=== PATIENT | female | born 1945 | race African-American/Black ===

== ENCOUNTER 2016-06-12 14:34 | Emergency (ER) | payer MEDICARE, OTHER ==
--- NOTE | ~2016-06-12 | CT71 ---
[facility] A Service of [facility] & [facility] RADIOLOGY TEXT RESULTS PATIENT: TAL DICK LOCATION: [facility] : 49 UNIT #: [id number] AGE: [address]: Melodie Santillan MD SEX: F ORDER DR: [id number] [facility] [address] [place], [place] [address] [id number] E MR#: [id number] Acc #: [id number] NAME: TAL DICK. : 1945 SEX: F STUDY DATE/TIME: 06/12/2016 15:39 UNIT: [facility] ROOM: STUDY DESCRIPTION: CT Head Wo Contrast Attending Physician: Melodie Santillan M.D. Ordering Physician: Melodie Santillan M.D. Primary Care Physician: Wanda Moyer M.D. MEDICAL IMAGING REPORT This report is preliminary unless electronic signature is present EXAM CT brain without contrast HISTORY Dizzy, lightheaded and visual disturbance for [address] exam was performed with one or more of the following radiation dose reduction techniques: automatic exposure control, adjustment of mA and/or kV according to patient size, and iterative reconstruction. FINDINGS Axial noncontrast images were obtained from the skull base to the vertex. Ventricular size and configuration are normal. There is no evidence of acute infarct or hemorrhage. There are no extra-axial fluid collections. No mass lesion or mass effect is seen. There are no skull fractures. IMPRESSION Normal noncontrast head CT. Dictated by... Silverio Cullen M.D. THIS IS AN ELECTRONICALLY VERIFIED REPORT Silverio Cullen M.D. at 06/13/2016 1:54 PM Dalia TD: 06/13/2016 08:58 JOB #: [id number] MEDICAL IMAGING REPORT COPY
--- NOTE | ~2016-06-12 | EKG ---
PATIENT: TAL DICK UNIT #: [id number] Ventricular Rate: 69 BPM Atrial Rate: 69 BPM P-R Interval: 160 ms QRS Duration: 84 ms Q-T Interval: 392 ms QTC Calculation(Bezet): 420 ms P Otis: 61 degrees Calculated R Otis: 63 degrees Calculated T Otis: 59 degrees Diagnosis Line: Normal sinus rhythm Diagnosis Line: Normal ECG Diagnosis Line: No previous ECGs available Diagnosis Line: Confirmed by YANCY MARIN MD ([id number]) on Diagnosis Line: 06/15/2016 4:00:45 PM INTERPRETING MD: TOMAS BROWNING
--- NOTE | ~2016-06-12 | CR72 ---
[facility] A Service of [facility] RADIOLOGY TEXT RESULTS PATIENT: TAL DICK LOCATION: [facility] : 49 UNIT #: [id number] AGE: [address]: Melodie Santillan MD SEX: F ORDER DR: [id number] [facility] [address] [place], [place] [address] [id number] E MR#: [id number] Acc #: [id number] NAME: TAL DICK. : 1945 SEX: F STUDY DATE/TIME: 06/12/2016 14:12 UNIT: [facility] ROOM: STUDY DESCRIPTION: CR Chest Single View Portable Attending Physician: Melodie Santillan M.D. Ordering Physician: Melodie Santillan M.D. Primary Care Physician: Wanda Moyer M.D. MEDICAL IMAGING REPORT This report is preliminary unless electronic signature is present EXAM Chest x-ray single-view portable HISTORY Lightheaded, dizziness for 3 days. Mild congestion. History of colon cancer. COMMENTS Single frontal portable view chest timed 14:12 06/12/2016 reviewed. There is evidence for old granulomatous disease. The heart size is borderline. There is no acute appearing parenchymal infiltrate, acute congestive failure, pleural effusion or pneumothorax suspected. IMPRESSION Borderline heart size otherwise no active disease. Dictated by... Jennifer Jeong M.D. THIS IS AN ELECTRONICALLY VERIFIED REPORT Jennifer Jeong M.D. at 06/13/2016 6:20 AM TONA/peggy TD: 06/13/2016 05:56 JOB #: [id number] MEDICAL IMAGING REPORT COPY
[2016-06-12 14:17] LABS: POC - CKMB 1.9 ng/mL (0.0-7.9); POC - TROPONIN <0.05 ng/mL (<=0.05)
[2016-06-12 14:19] LABS: BASOPHIL% 0.7 % (0-2.5); EOSINOPHIL# 0.1 X10e3 (0-0.7); EOSINOPHIL% 1.4 % (0.0-7.0); HEMOGLOBIN 11.7 gm/dL (12.0-16.0); LYMPHOCYTE# 1.6 X10e3 (1.0-3.5); LYMPHOCYTE% 23.1 % (17.0-45.0); MEAN CELL VOLUME 80.3 FL (83-96); MEAN CORPUSCULAR HEMOGLOBIN 25.3 PG (28-34); MEAN CORPUSCULAR HGB CONC 31.5 g/dL (30-36); MEAN PLATELET VOLUME 8.8 FL (6.5-11.5); MONOCYTE# 0.5 X10e3 (0-1.0); MONOCYTE% 6.6 % (3.0-12.0); NEUTROPHIL# 4.7 X10e3 (1.5-7.1); NEUTROPHIL% 68.2 % (40-75); PLATELET COUNT 295 X10e3 (140-420); RED BLOOD COUNT 4.61 X10e (3.90-5.30); RED CELL DISTRIBUTION WIDTH 16.4 % (11.0-15.5); WHITE BLOOD COUNT 6.9 X10e3 (4.0-10.5)
[2016-06-12 14:21] LABS: DIFF IND NO
[~2016-06-12 14:34] MED LIST: CALCIUM + D 6001 TA1 PO; FLEXERIL10 MG PO; KETOPROFEN PO; LORTAB 5/500 TA1 TA1 PO; MOTRIN600 MG PO; VALIUM10 MG PO; VICODIN 5/500 T1 TAB PO
[2016-06-12 14:41] LABS: ALKALINE PHOSPHATASE 68 U/L (32-92); ALT (SGPT) 19 U/L (10-40); AST (SGOT) 22 U/L (10-42); BILIRUBIN, DIRECT 0.1 mg/dL (0.0-0.2); BILIRUBIN,INDIRECT 0.7 mg/dL (0.0-0.9); BILIRUBIN,TOTAL 0.8 mg/dL (0.2-2.0); BLOOD UREA NITROGEN 15 mg/dL (9-23); BUN/CREATININE RATIO 13.63; CALCIUM SERUM 8.9 mg/dL (8.4-10.2); CARBON DIOXIDE 26 mmol/L (22-31); CHLORIDE 104 mmol/L (100-111); CREATININE SERUM 1.1 mg/dL (0.6-1.4); GLOM FILT RATE Estimated ABOVE60 mL/min (>60); GLUCOSE FASTING 119 mg/dL (70-110); PROTEIN TOTAL SERUM 7.4 g/dL (6.0-8.3); SODIUM 138 mmol/L (135-145)
[2016-06-12 15:14] LABS: URINE SOURCE CLEAN CATCH
[2016-06-12 15:21] LABS: URINE APPEARANCE CLEAR; URINE BILIRUBIN NEG (NEG); URINE BLOOD 1+ (NEG); URINE COLOR YELLOW; URINE GLUCOSE NEG (NEG); URINE KETONE NEG (NEG); URINE LEUKOCYTE ESTERASE TRACE (NEG); URINE NITRATE NEG (NEG); URINE PROTEIN NEG (NEG); URINE SPECIFIC GRAVITY 1.021 (1.003-1.035); URINE UROBILINOGEN 0.2 MG/DL (NEG)
[2016-06-12 15:24] LABS: CULTURE INDICATED? YES; U HYALINE CASTS AUWI 0-2 /[LPF]; URINE BACTERIA AUWI NEG (NEGATIVE); URINE SQUAMOUS EPITHELIAL CELL NONE SEEN /[HPF]
[2016-06-12 16:06] LABS: POC - CKMB 1.5 ng/mL (0.0-7.9); POC - TROPONIN <0.05 ng/mL (<=0.05)
== END 2016-06-12 16:58 | disposition home or self-care (01) ==
LOC: CED 14:34
PROVIDERS: Emergency Medicine
DX: R42 Dizziness and giddiness (principal); R31.29 Other microscopic hematuria
CPT/HCPCS: 70450; 71010; 80048; 80076; 81003; 82553; 83880; 84484; 85025; 87086; 93005; 99284

== ENCOUNTER 2016-10-28 18:38 | Emergency (ER) | payer MEDICARE, OTHER ==
[~2016-10-28] VITALS: Ht 151.1 cm; Wt 59.0 kg
[2016-10-28 20:30] LABS: BASOPHIL# 0.1 X10e3 (0-0.3); BASOPHIL% 0.7 % (0-2.5); EOSINOPHIL# 0.1 X10e3 (0-0.7); EOSINOPHIL% 1.3 % (0.0-7.0); HEMATOCRIT 36.8 % (35.0-45.0); HEMOGLOBIN 11.4 gm/dL (12.0-16.0); LYMPHOCYTE% 23.3 % (17.0-45.0); MEAN CELL VOLUME 79.5 FL (83-96); MEAN CORPUSCULAR HEMOGLOBIN 24.7 PG (28-34); MEAN CORPUSCULAR HGB CONC 31.1 g/dL (30-36); MEAN PLATELET VOLUME 8.6 FL (6.5-11.5); MONOCYTE# 0.6 X10e3 (0-1.0); MONOCYTE% 6.7 % (3.0-12.0); NEUTROPHIL# 5.9 X10e3 (1.5-7.1); PLATELET COUNT 290 X10e3 (140-420); RED BLOOD COUNT 4.63 X10e (3.90-5.30); WHITE BLOOD COUNT 8.6 X10e3 (4.0-10.5)
[2016-10-28 20:33] LABS: DIFF IND NO
[2016-10-28 20:48] LABS: ALKALINE PHOSPHATASE 62 U/L (32-92); ALT (SGPT) 16 U/L (10-40); AST (SGOT) 19 U/L (10-42); BILIRUBIN, DIRECT <0.1 mg/dL (0.0-0.2); BILIRUBIN,INDIRECT 0.6 mg/dL (0.0-0.9); BILIRUBIN,TOTAL 0.7 mg/dL (0.2-2.0); BLOOD UREA NITROGEN 16 mg/dL (9-23); CALCIUM SERUM 9.2 mg/dL (8.4-10.2); CARBON DIOXIDE 31 mmol/L (22-31); CHLORIDE 103 mmol/L (100-111); GLOM FILT RATE Estimated 66.6 mL/min (>60); GLUCOSE FASTING 104 mg/dL (70-110); POTASSIUM 3.7 mmol/L (3.5-5.1); PROTEIN TOTAL SERUM 7.3 g/dL (6.0-8.3); SODIUM 140 mmol/L (135-145)
[2016-10-28 22:32] LABS: POC - CKMB 1.6 ng/mL (0.0-7.9); POC - TROPONIN <0.05 ng/mL (<=0.05)
[2016-10-28 22:40] LABS: URINE SOURCE CLEAN CATCH
[2016-10-28 22:54] LABS: POC - CKMB 1.6 ng/mL (0.0-7.9); POC - TROPONIN <0.05 ng/mL (<=0.05)
[2016-10-28 22:55] LABS: URINE APPEARANCE CLEAR; URINE BILIRUBIN NEG (NEG); URINE BLOOD 1+ (NEG); URINE COLOR YELLOW; URINE GLUCOSE NEG (NEG); URINE KETONE NEG (NEG); URINE LEUKOCYTE ESTERASE 2+ (NEG); URINE NITRATE NEG (NEG); URINE PH 7.5 (5-8); URINE PROTEIN NEG (NEG); URINE SPECIFIC GRAVITY 1.021 (1.003-1.035); URINE UROBILINOGEN 0.2 MG/DL (NEG)
[2016-10-28 22:58] LABS: CULTURE INDICATED? YES; URINE BACTERIA AUWI 1+ (NEGATIVE); URINE SQUAMOUS EPITHELIAL CELL OCC /[HPF]
== END 2016-10-28 23:28 | disposition home or self-care (01) ==
LOC: CED 18:38
PROVIDERS: Emergency Medicine
DX: N39.0 Urinary tract infection, site not specified (principal); R42 Dizziness and giddiness; G47.00 Insomnia, unspecified; R09.02 Hypoxemia
CPT/HCPCS: 36415; 80048; 80076; 81003; 82553; 84484; 85025; 87086; 93005; 99284